=== PATIENT | male | born 1970 | race Caucasian/White ===

== ENCOUNTER 2017-02-20 14:43 | Emergency (ER) | payer OTHER ==
[~2017-02-20] VITALS: Ht 175.3 cm; Wt 99.8 kg
[~2017-02-20 14:43] MED LIST: SERTRALINE HCL100 MG PO; XANAX1 M1 PO
--- NOTE | 2017-02-20 15:13 | ED GI/GU/ABDOMINAL COMPLAINT ---
History of Present Illness General Chief Complaint: General Adult Stated Complaint: PT IS BLEEDING FROM HIS BOTTOM Source: patient, family Exam Limitations: no limitations Vital Signs & Intake/Output Vital Signs & Intake/Output Vital Signs Date Time Temp Pulse Resp B/P B/P Pulse O2 O2 Flow FiO2 Mean Ox Delivery Rate 02/20 1600 98.1 102 20 122/78 94 Room Air 02/20 1446 98.0 106 16 96 Room Air Allergies Coded Allergies: Penicillins (ANAPHYLAXIS 02/20/17) Reconcile Medications Alprazolam 2 MG TABLET 2 TAB PO TID ANXIETY (Reported) Alprazolam (Xanax) 1 MG TABLET 1 TAB PO BID PRN ANXIETY Sertraline HCl (Zoloft) 100 MG TABLET 1 TAB PO DAILY ANXIETY Sertraline HCl 100 MG TABLET 1 TAB PO DAILY depression Zaleplon (Sonata) 10 MG CAPSULE 1 CAP PO QPM SLEEP (Reported) Zaleplon (Sonata) 10 MG CAPSULE 1 CAP PO QPM SLEEP Triage Note: 46 Y/O MALE C/O RECTAL BLEEDING AND ABDOMINAL PAIN A FEW WEEKS, WORSENING RECTAL BLEEDING TODAY. ALSO C/O NAUSEA, VOMITING AFTER EATING AND WEAKNESS. DIAGNOSED WITH HEPATITIS B AND C; WAS DUE TO SEE GI SPECIALIST FOR EVAL OF ? STOMACH CANCER BUT DID NOT GO TO APPOINTMENT. Triage Nurses Notes Reviewed? yes Onset: Abrupt Duration: day(s): (1) Timing: multiple episodes today Quality/Severity: mild Location: generalized abdomen, right upper quadrant Radiation: no radiation Activities at Onset: none No Modifying Factors: none Associated Symptoms: RUQ PAIN, BLOOD IN STOOL HPI: 46 year old male with history of Hep C diagnosed 10 years ago presents with his brother for cheif complaint of bright red blood per rectum x 2 today. The brother reports his abdomen has looked distended and he feels his is confused and is worried that his brother is developing liver failure like their mother. He admits to formerly using IV heroin. Denies any recent drug use. No fever or chills. He does not see a doctor. The patient has been busy taking care of his mother and has been stressed out. Now his brother is back in town from out of state and states that is why he brought him here to the ED for evaluation. Past History Travel History Traveled to [place] past 21 day No Medical History Any Pertinent Medical History? see below for history Neurological: NONE EENT: NONE Cardiovascular: NONE Respiratory: NONE Gastrointestinal: NONE Hepatic: cirrhosis, hepatitis B, hepatitis C Renal: NONE Musculoskeletal: NONE Psychiatric: anxiety, PTSD, Endocrine: NONE Blood Disorders: NONE Cancer(s): NONE ROAD WORKER/Reproductive: NONE Surgical History Surgical History: non-contributory Psychosocial History What is your primary language French Tobacco Use: Current Daily Use Daily Tobacco Use Amount/Type: =< 4 Cigarettes daily Family History Hx Contributory? No Review of Systems Review of Systems Constitutional: Denies: chills, fever. EENTM: Reports: no symptoms. Respiratory: Denies: cough, short of breath. Cardiovascular: Denies: chest pain, palpitations. GI: Reports: abdominal pain, diarrhea. Denies: nausea, vomiting. Genitourinary: Denies: discharge, dysuria. Musculoskeletal: Denies: back pain. Skin: Reports: no symptoms. Neurological/Psychological: Reports: anxiety, depressed. Denies: headache. Hematologic/Endocrine: Reports: bleeding. Denies: bruising, polyuria, polydipsia. Immunologic/Allergic: Denies: splenectomy. All Other Systems: Reviewed and Negative Physical Exam Physical Exam General Appearance: well developed/nourished, alert, awake, mild distress, obese , depressed affect Head: atraumatic, normal appearance Eyes: Bilateral: normal appearance, PERRL, EOMI. Ears, Nose, Throat, Mouth: hearing grossly normal, moist mucous membrane Neck: normal inspection, supple, full range of motion Respiratory: normal breath sounds, chest non-tender, no respiratory distress Cardiovascular: regular rate/rhythm Peripheral Pulses: 2+ radial (R), 2+ radial (L) Gastrointestinal: normal bowel sounds, soft, tenderness (MILD DIFFUSE), NO REBOUND OR GUARDING, SMALL TELANGIECTASIAS ON ABDOMEN Rectal: NO HEMORRHOIDS LIGHT BROWN, HEME NEGATIVE STOOL Extremities: normal range of motion Neurologic/Psych: no motor/sensory deficits, awake, alert, oriented x 3, depressed affect Skin: intact, normal color, warm/dry Core Measures ACS in differential dx? No Severe Sepsis Present: No Septic Shock Present: No Progress Differential Diagnosis: HEPATITIS C, CIRRHOSIS, DRUG ABSUSE, ALCOHOL ABUSE, FATTY LIVER Plan of Care: Orders Procedure Date/time Status LACTIC ACID 02/20 181 Active URINALYSIS 02/20 151 Complete EKG 02/20 151 Active URINE DRUGS OF ABUSE 02/20 151 Complete PARTIAL THROMBOPLASTIN TIME 02/21 1512 Complete PROTHROMBIN TIME 02/20 151 Complete AMMONIA 02/20 151 Active LACTIC ACID 02/21 1512 Active HEPATITIS PANEL 02/21 1512 Active ETHANOL 02/21 1512 Active COMPREHENSIVE METABOLIC PANEL 02/21 1512 Active CBC WITHOUT DIFFERENTIAL 02/21 1512 Complete Laboratory Tests 02/20/17 1600: Urine Opiates Screen > 4000.00 H, Methadone Screen > 735 H, Barbiturate Screen < 60, Ur Phencyclidine Scrn < 6.00, Amphetamines Screen 101, U Benzodiazepines Scrn < 85, Urine Cocaine Screen < 50, Urine Cannabis Screen < 5.00, Urine Color YEL, Urine Clarity CLEAR, Urine pH 6.5, Ur Specific Ruby 1.020, Urine Protein TRACE H, Urine Ketones NEG, Urine Nitrite NEG, Urine Bilirubin NEG, Urine Urobilinogen 1.0, Ur Leukocyte Esterase NEG, Ur Microscopic SEDIMENT EXAMINED, Urine RBC RARE, Urine WBC RARE, Urine Bacteria FEW H, Urine Mucus MOD H, Urine Hemoglobin NEG, Urine Glucose NEG 02/20/17 1540: Anion Gap 10, Estimated GFR > 60, BUN/Creatinine Ratio 11.0, Glucose 96, Lactic Acid 1.1, Calcium 9.4, Total Bilirubin 0.7, AST 40, ALT 87 H, Alkaline Phosphatase 61, Ammonia < 9 L, Total Protein 7.6, Albumin 4.3, Globulin 3.3, Albumin/Globulin Ratio 1.3, PT 11.8, INR 1.13, APTT 33, CBC w Diff NO MAN DIFF REQ, RBC 5.09, MCV 90.9, MCH 30.6, RDW 13.7, MPV 8.9, Gran % 63.0, Lymphocytes % 29.5, Monocytes % 5.8, Eosinophils % 1.2, Basophils % 0.5, Absolute Granulocytes 4.4, Absolute Lymphocytes 2.1, Absolute Monocytes 0.4, Absolute Eosinophils 0.1, Absolute Basophils 0, PUBS MCHC 33.7, Hepatitis A IgM Ab Pending, Hep Bs Antigen Pending, Hep B Core IgM Ab Conf Pending, Hepatitis C Antibody Pending, Serum Alcohol < 10.0 lab results and ultrasound reviewed with patient and brother. i talked in confidence to the patient regarding his utox who now admits to using methadone and roxicodone off the street. patient started to demant prescriptions for sonnata and xanax and i informed him that he needs to follow up with GI for possible Hep C treatment and primary care for stabilization of his chronic mental health issues. The patient became very angry and stated that he would just need to call his guys off the street to get his meds then. No suicidal or homicidal ideation. Copy of labs and ultrasound given to patient and told to follow up with Dr. Curry. (GIOVANNY LOZOYA,DMITRI) Diagnostic Imaging: Viewed by Me: Ultrasound. Discussed w/RAD: Ultrasound. Initial ED EKG: SINUS TACHYCARDIA @ 102 BPM Comments: PATIENT: ABHISHEK MERRITT PRESENT AGE: 46 PATIENT ACCOUNT NO: [id number] : 71 LOCATION: [facility] ORDERING PHYSICIAN: DMITRI BALTAZAR MD SERVICE DATE: 02/20/17 EXAM TYPE: US - US-LIMITED ABDOMEN EXAMINATION: US ABDOMEN LIMITED CLINICAL INFORMATION: Abdominal pain and distention. Reported history of hepatitis C.. COMPARISON: None TECHNIQUE: Real-time imaging of the right upper quadrant abdominal viscera. FINDINGS: PANCREAS: The pancreas is obscured by bowel gas. LIVER: The liver is diffusely hyperechoic, consistent with steatosis, and there is suboptimal acoustic penetration through the deep portions of liver. No evidence of surface nodularity or focal hepatic lesions. No intrahepatic bile duct dilatation. The right hepatic lobe measures 17.9 cm in length. GALLBLADDER: Gallbladder is physiologically distended and without evidence of stones, sludge, polyps, wall thickening or pericholecystic fluid. COMMON BILE DUCT: Normal in caliber measuring 0.5 cm in diameter. RIGHT KIDNEY: Normal. No hydronephrosis. No renal calculi or focal parenchymal lesions. The kidney measures 11.1 cm in maximum dimension. FREE FLUID: None. SPLEEN: Normal in size, measuring up to 9.1 cm maximum dimension. No perisplenic fluid. IMPRESSION: 1. Liver is diffusely hyperechoic, consistent with steatosis. Recommend correlation with liver function tests. 2. No evidence of cirrhotic morphology, hepatoma or ascites. 3. Gallbladder is normal. DICTATED BY: SHEMAR BA MD DATE/TIME DICTATED:02/20/171636 [employer] SUPERVISOR:MATTY DATE/TIME TRANSCRIBED:02/20/171636 CONFIDENTIAL, DO NOT COPY WITHOUT APPROPRIATE AUTHORIZATION. <Electronically signed in Other Vendor System> SIGNED BY: SHEMAR BA MD 02/20/17 1645 Departure Departure Time of Disposition: 1710 Disposition: HOME OR SELF CARE Condition: Stable Clinical Impression Primary Impression: Hepatitis C Secondary Impressions: Narcotic abuse Referrals: PALLAVI LOZOYA,TICO Trivedi PATIENT HAS NO PRIMARY CARE DR (PCP/Family) PHILOMENA LOZOYA,VARGHESE CURRY MD,DAILY Jenkins Additional Instructions: Please call Dr. Curry for an appointment. Take a copy of your results of your blood work and the ultrasound to him. Your prescriptions are at [facility]. Follow-up also with the primary care providers listed. Departure Forms: Customer Survey General Discharge Information Prescriptions: Current Visit Scripts Sertraline HCl (Zoloft) 1 TAB PO DAILY #10 TAB Zaleplon (Sonata) 1 CAP PO QPM #10 CAP Alprazolam (Xanax) 1 TAB PO BID PRN ANXIETY #4 TAB ED Attending Observation Initial Observation Note: I have seen and personally examined ABHISHEK MERRITT on 02/20/17 at 2254. I agree with the current emergency department documentation. The disposition (admission or discharge) is uncertain at this time, he needs a period of observation for the following reason(s): The ED Nurse caring for this patient has been personally informed as to what the patient is being observed for.
[2017-02-20 15:58] LABS: ABSOLUTE BASOPHIL COUNT 0 /CUMM (0.0-0.2); ABSOLUTE EOSINOPHIL COUNT 0.1 /CUMM (0.0-0.7); ABSOLUTE GRANULOCYTE CT 4.4 /CUMM (1.4-6.5); ABSOLUTE LYMPH COUNT 2.1 /CUMM (1.2-3.4); ABSOLUTE MONOCYTE COUNT 0.4 /CUMM (0.10-0.60); BASOPHIL % 0.5 % (0.0-2.0); EOSINOPHIL % 1.2 % (0-5); HEMATOCRIT 46.3 % (42-52); MEAN CORPUSCULAR HGB 30.6 PG (27.0-31.0); MEAN CORPUSCULAR HGB CONC 33.7 G/DL (33.0-37.0); MEAN CORPUSCULAR VOLUME 90.9 FL (80.0-94.0); MEAN PLATELET VOLUME 8.9 FL (7.4-10.4); PLATELET COUNT 204 /CUMM (130-400); RBC DISTRIBUTION WIDTH 13.7 % (11.5-14.5); RED BLOOD CELL CT 5.09 /CUMM (4.70-6.10)
[2017-02-20 16:00] VITALS: BP 122/78
[2017-02-20 16:09] LABS: PT 11.8 SEC (9.4-12.5); PTT 33 SEC (25-37)
[2017-02-20] MEDS ORDERED: ALPRAZOLAM2 M2 PO (16:29)
[2017-02-20] MEDS ORDERED: SONATA10 MG PO ×2 (16:33→17:09)
--- NOTE | 2017-02-20 16:45 | ULTRASOUND REPORT ---
EXAMINATION: US ABDOMEN LIMITED CLINICAL INFORMATION: Abdominal pain and distention. Reported history of hepatitis C.. COMPARISON: None TECHNIQUE: Real-time imaging of the right upper quadrant abdominal viscera. FINDINGS: PANCREAS: The pancreas is obscured by bowel gas. LIVER: The liver is diffusely hyperechoic, consistent with steatosis, and there is suboptimal acoustic penetration through the deep portions of liver. No evidence of surface nodularity or focal hepatic lesions. No intrahepatic bile duct dilatation. The right hepatic lobe measures 17.9 cm in length. GALLBLADDER: Gallbladder is physiologically distended and without evidence of stones, sludge, polyps, wall thickening or pericholecystic fluid. COMMON BILE DUCT: Normal in caliber measuring 0.5 cm in diameter. RIGHT KIDNEY: Normal. No hydronephrosis. No renal calculi or focal parenchymal lesions. The kidney measures 11.1 cm in maximum dimension. FREE FLUID: None. SPLEEN: Normal in size, measuring up to 9.1 cm maximum dimension. No perisplenic fluid. IMPRESSION: 1. Liver is diffusely hyperechoic, consistent with steatosis. Recommend correlation with liver function tests. 2. No evidence of cirrhotic morphology, hepatoma or ascites. 3. Gallbladder is normal.
[2017-02-20] MEDS ORDERED: XANAX1 M1 PO (17:09)
[2017-02-20] MEDS ORDERED: ZOLOFT100 M1 PO (17:09)
== END 2017-02-20 17:19 ==
LOC: ERH 14:43
PROVIDERS: Emergency Medicine
DX: B19.20 Unspecified viral hepatitis C without hepatic coma (principal); F11.10 Opioid abuse, uncomplicated
CPT/HCPCS: 80307; 81001; 93005; 93010; G0480